=== PATIENT | female | born 1960 ===

== ENCOUNTER 2025-01-19 10:16 | Outpatient (AMB) | payer OTHER, SELFPAY ==
--- OUTSIDE RECORDS SUMMARY | 2025-01-19 11:15 | XMS_ITS | Clinical Summary ---
Author Organization [facility] [address] [facility] Building Address [address] [facility] [place] [address] Phone Care Team Providers Care Sales Center Associate Name Role Phone Sudarshan Nichols MD Primary Care Provider [phone] [phone] Allergies Active Allergy Reactions Criticality Noted Date Comments Other 01/05/2023 Seasonal Medications albuterol HFA (PROAIR HFA ; PROVENTIL HFA ; VENTOLIN HFA) 90 mcg/actuation inhaler Inhale 2 Puffs into the lungs every 6 hours as needed for Cough or Wheezing. 01/28/20 24 Active estradioL (ESTRACE) 0.5 mg tablet Take 1 tablet (0.5 mg total) by mouth 1 (one) time each day. 01/14/20 24 Active fluticasone propionate (FLONASE) 50 mcg/actuation nasal spray 2 sprays in each nostril daily 04/03/20 17 Active multivitamin (MULTIPLE VITAMINS ORAL) Take 2 tablets by mouth daily. Gummies Active ibuprofen (ADVIL,MOTRIN) 600 mg tablet Take 1 tablet (600 mg total) by mouth 1 (one) time each day if needed for mild pain (left shoudlerpain). 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 There is no pain, numbness, or tingling associated with this. She is just noted that over the past year or so it has gotten bigger. On exam to me it feels like this is a pure bony protuberance and possibly related to just arthritis in the joint between the clavicle and sternum. I discussed this with her in detail as well as her x-rays. We also talked about if this increases in size further or is associated with any pain that we could look into this further with CT imaging but for now I think she can follow- up with me on an as-needed basis moving forward. All questions were answered. 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 Overview (04/04/2024): Echo 08/10; 06/14 Hypertension 08/12/2008 Sickle cell trait ([facility] V24) 08/12/2008 Asthma 02/06/2008 Osteoarthritis 10/10/2006 Overview (04/04/2024): IMO update Immunizations Name Administration Dates Next Due Pfizer SARS-CoV-2 COVID-19, mRNA, LNP-S, preservative free 06/14/2021,01/03/2021,12/13/2020 Td Tetanus diptheria (Tdvax) 7yo and older 02/14,02/08/2006 Tdap Tetanus diptheria acell ular pertussis (Boostrix; Adacel) 7yo and older 08/15/2012 Surgical History Surgery Date Site/Laterality Comments OTHER SURGICAL HISTORY 2004 PROCEDURE: HISTORICAL PELVISCOPY; COMMENT: RSO TUBAL LIGATION 1988 PROCEDURE: HISTORICAL TUBAL LIGATION OTHER SURGICAL HISTORY 12/23/2008 PROCEDURE: HISTORICAL TOTAL HYSTERECTOMY W/O BSO; COMMENT: LSO CHOLECYSTECTOMY 1986 PROCEDURE: [place] CHOLECYSTECTOMY COLONOSCOPY 02/14/10 PROCEDURE: HISTORICAL COLONOSCOPY; COMMENT: normal; repeat in ten years CATARACT EXTRACTION 03/19 Right PROCEDURE: HISTORICAL CATARACT REMOVAL; COMMENT: Samina Medical History Medical History Date Comments Sickle cell trait (CMS/HCC V24) 08/12/2008 DX:Sickle cell trait (HCC) 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 DX:Myxom atous mitral valve; COMMENT: Echo 08/10 Anemia, unspecified DX:Anemia, u nspecified Unspecified asthma(493.90) DX:Un specified asthma(493.90) Unspecified essential hypertension 08/12/2008 DX:Unspecified essential hypertension Venereal disease, unspecified DX :Venereal disease, unspecified Generalized osteoarthrosis, unspecified site DX:Generalized osteoarthrosi s, unspecified site HLD (hyperlipidemia) 07/01/2020 DX:HLD (hyp erlipidemia) Family History Medical History Relation Name Comments Lung cancer Father Other cancer Mother pancreas Other: Sickle cell trait Mother Diabetes Sister 1 Breast cancer Neg Hx Relation Name Status Comments Brother 1 Alive Brother 2 Alive Brother 3 Alive Daughter 1 Lynn Alive Daughter 2 Dedra Alive Father cancer Maternal Grandfather Maternal Grandmother Mother cancer Paternal Grandfather Paternal Grandmother Sister 1 Alive htn, borderline diabetes Sister 2 Alive Sister 3 Alive Sister 4 Alive Son Shawn Alive Social History Tobacco Use Types Packs/Day Years Used Date Smoking Tobacco: Former Cigarettes 0.1 20 0 06/04/1974 - 06/04/1994 Smokeless Tobacco: Never Tobacco Cessation:Counseling Given: Not Answered Alcohol Use Standard Drinks/Week Comments Yes 0 (1 standard drink = 0.6 oz pur e alcohol) Housing Instability Answer Date Recorde d Are you worried that in the next 2 months you may not have stable housing? No 04/04/2024 Food Access & Nutrition Answer Date Rec orded Do you have access to a vari ety of food including fruits and vegetables? Yes 04/04/2024 Access to Healthcare Answer Date Record ed Within the last 3 months, ho w many times did you visit the emergency department for your medical care? 0 04/04/2024 Health Literacy Answer Date Recorded How often do you need to hav e someone help you when you read instructions, pamphlets, or other written material from your doctor or pharmacy? Never 04/04/2024 Caregiver: How often do you need to have someone help you when you read instructions, pamphlets, or other written material from your doctor or pharmacy? Not on file 04/04/2024 Financial Risk Answer Date Recorded How hard is it for you to pa y for the very basics like food, housing, medical care, and air conditioning / heating? Not very hard 04/04/2024 Transportation Answer Date Recorded Has the lack of transportati on kept you from meetings, work, or from getting things needed for daily living? No Has the lack of transportati on kept you from medical appointments or from getting medications? No 04/04/2024 Social Isolation Answer Date Recorded How often do you feel lonely or isolated from th ose around you? Never 04/04/2024 Food Risk Answer Date Recorded Within the past 12 months we worried whether our food would run out before we got money to buy more. Never true 04/04/2024 Within the past 12 months th e food we bought just didn't last and we didn't have money to get more. Never true 04/04/2024 Dependent Care Answer Date Recorded Do you need help finding or paying for care for your loved ones. For example, child welfare social worker or elderly care for an older adult? No 04/04/2024 Education Answer Date Recorded Do you think completing more education or training, like finishing a GED, going to college, or learning a trade, would be helpful for you? No 04/04/2024 Employment and Income Answer Date Recor ded During the last four weeks, have you been actively looking for work? No 04/04/2024 Living Situation Answer Date Recorded What is your living situation? 1 06/04/2023 Comments No Sex and Gender Information Value Date Recorded Sex Assigned at Not on file Legal Sex Female 9:47 PM EST Gender Identity Not on file Sexual Orientation Not on file Obstetrics History Last Filed Vital Signs Vital Sign Reading Time Taken Comments Blood Pressure 142/82 05/09/2024 8:39 AM EST Pulse 64 05/09/2024 8:39 AM EST Temperature 36.4 C (97.5 F) 05/09/2024 8:39 AM EST Respiratory Rate 18 05/09/2024 8:39 AM EST Oxygen Saturation 100% 05/09/2024 8:39 AM EST Inhaled Oxygen Concentration - - Weight 78 kg (171 lb 14.4 oz) 05/09/2024 8:39 AM EST Height 165.1 cm (5' 5 ) 05/09/2024 8:39 AM EST Body Mass Index 28.61 05/09/2024 8:39 AM EST Plan of Treatment Upcoming Encounters Date Type Department Care Team (Late st Contact Info) Description 01/23/2025 8:00 AM EDT Office Visit Internal Medicine - [address] [phone] Harry Catherine NP [address] [place] [id number] 02/17/2025 9:20 AM EDT Appointment Radiology Department [address] [address] Health Maintenance Due Date Last Done Comments Pneumococcal Vaccine: 50+ Years (1 of 2 - PCV) 08/01/1978 Zoster Vaccines (1 of 2) 08/01/2009 RSV Immunization Adult Patients (1 - Risk 60-74 years 1-dose series) 2019 Osteoporosis Screening (Bone Density Screening) 05/13/2022 COVID-19 Vaccine ( season) 2024 06/14/2021, 01/03/2021, 12/13/2020 Depression Screening 06/04/2024 04/04/2024 Falls Risk Assessment 08/01/2024 Influenza Vaccine (#1) 2025 Hypertension/CHF/CAD Annual BMP Blood Test 02/14/2025 02/15/2024, 02/15/2024 Social Influencers of Health Screening 04/04/2025 04/04/2024 Breast Cancer Screening 08/15/2025 08/16/19 24, 08/16/2023, 08/10/2022, Additional history exists Cholesterol Screening (Lipid Panel) 02/14/2029 02/15/2024, 02/15/2024 Colorectal Cancer Screening: Colonoscopy 11/08/2030 11/08/2020 DTaP,Tdap,and Td Vaccines (4 - Td or Tdap) 02/14/2034 02/15/2024, 08/15/2012, 02/08/2006 Hepatitis C Screening Completed 05/16/2010 HIB Vaccines Aged Out No longer eligi ble based on patient's age to complete this topic HPV Vaccines Aged Out No longer eligi ble based on patient's age to complete this topic Hepatitis A Vaccines Aged Out No long er eligible based on patient's age to complete this topic Hepatitis B Vaccines Aged Out No long er eligible based on patient's age to complete this topic IPV Vaccines Aged Out No longer eligi ble based on patient's age to complete this topic MMR Vaccines Aged Out No longer eligi ble based on patient's age to complete this topic Meningococcal ACWY Vaccine Aged Out N o longer eligible based on patient's age to complete this topic Meningococcal B Vaccine Aged Out No l onger eligible based on patient's age to complete this topic RSV Immunization Patients Under 20 months Aged Out No longer eligible based on patient's age to complete this topic Varicella Vaccines Aged Out No longer eligible based on patient's age to complete this topic Procedures Procedure Name Priority Date/Time Associated Diagnosis Comments ANNUAL BMP BLOOD TEST Routine 02/15/2024 LIPID PANEL Routine 02/15/2024 SCREENING MAMMOGRAPHY BI 2-VIEW BREAST INC CAD Routine 08/16/2023 7:48 AM EDT Encounter for screening mammogram for malignant neoplasm of breast COLONOSCOPY Routine 11/08/2020 HEPATITIS C SCREENING Routine 05/16/2010 from Last 3 Months or Most Recently Relevant to Health Maintenance Results * Annual BMP Blood Test (02/15/2024) Annual BMP Blood Test Abstracted Historical Provider HEALTH MAINTENANCE Final Result * (ABNORMAL) Lipid panel (02/15/2024) LDL/HDL Ratio 3 0 - 4 Triglycerides 107 0 - 150 mg/dL Cholesterol 205(A) 0 - 200 mg/dL HDL 61 >=40 mg/dL LDL Cholesterol 123(A) 0 - 100 mg/dL Blood Venous blood specimen / Unknown Historical Provider LAB BLOOD ORDERABLES Vero l Result * SCREENING MAMMOGRAPHY BI 2-VIEW BREAST INC CAD (08/16/2023 7:48 AM EDT) Anatomical Region Laterality Modality Radiographic Adriana ging 08/10/2022 8:04 AM EST Narrative 08/16/2023 4:50 PM EDT This is a summary report. The complete report is available in the patient's medical record. If you cannot access the medical record, please contact the sending organization for a detailed fax or copy. BILATERAL 3D DIGITAL SCREENING MAMMOGRAM History: Routine screening. No current breast complaints. Comparison: Multiple priors dating back to 02/12/2019 Technique: Bilateral full-field digital 3D mammography was performed using standard CC and MLO projections CAD was used to evaluate this mammogram. Findings: Density: The breasts are heterogeneously dense which may obscure small masses-C RIGHT: No suspicious masses, groups of microcalcification or areas of architectural distortion identified. Stable typically benign parenchymal asymmetries LEFT: No suspicious masses, groups of microcalcifications or areas of architectural distortion identified. Stable typically benign parenchymal asymmetries IMPRESSION: : 1. No mammographic evidence of malignancy. BI-RADS Category 2 benign findings Recommendation: Routine annual screening mammography is recommended Procedure Note Vinay Husain MD - 01/21/2024 This is a summary report. The complete report is available in thepatient's medical record. If you cannot access the medical record, pleasecontact the sending organization for a detailed fax or copy. BILATERAL 3D DIGITAL SCREENING MAMMOGRAM History: Routine screening. No current breast complaints. Comparison: Multiple priors dating back to 02/12/2019 Technique: Bilateral full-field digital 3D mammography was performed usingstandard CC and MLO projections CAD was used to evaluate this mammogram. Findings: Density: The breasts are heterogeneously dense which may obscure smallmasses-C RIGHT: No suspicious masses, groups of microcalcification or areas ofarchitectural distortion identified. Stable typically benign parenchymalasymmetries LEFT: No suspicious masses, groups of microcalcifications or areas ofarchitectural distortion identified. Stable typically benign parenchymalasymmetries IMPRESSION: : 1. No mammographic evidence of malignancy. BI-RADS Category 2 benign findings Recommendation: Routine annual screening mammography is recommended Sascha Castillo CNM IMG XR PROCEDURES Final Resul t * Colonoscopy (11/08/2020) Pathologist [facility] Colonoscopy Normal, Abstracted Anatomical Region Laterality Modality Other Historical Provider HEALTH MAINTENANCE Final Result * Hepatitis C Screening (05/16/2010) Pathologist [facility] Hepatitis C Screening Abstracted Historical Provider HEALTH MAINTENANCE Final Result from Last 3 Months or Most Recently Relevant to Health Maintenance Insurance [facility] [address] [place] [id number] Care Teams Sales Center Associate Relationship Specialty Start Date End Date Sudarshan Nichols MD [address] [place] [address] [place] [phone] PCP - General Internal Medicine 06/06/17 02/12/25
== END 2025-01-19 10:20 | disposition home or self-care (01) ==
LOC: HO.HMGAL 10:16
PROVIDERS: PCP Internal Medicine; Visit Provider Registered Nurse Emergency
DX: J30.89 Other allergic rhinitis (principal)
CPT/HCPCS: 95117; 95165

== ENCOUNTER 2025-02-09 14:43 | Outpatient (AMB) | payer OTHER, SELFPAY ==
--- OUTSIDE RECORDS SUMMARY | 2025-02-09 17:03 | XMS_ITS | Clinical Summary ---
Author Organization [facility] [address] [facility] Building Address [address] [facility] [place] [address] Phone Care Team Providers Care Ornamental Ironworker Helper Name Role Phone Sudarshan Nichols MD Primary Care Provider [phone] Allergies Active Allergy Reactions Criticality Noted Date Comments Other 01/05/2023 Seasonal Medications fluticasone propionate (FLONASE) 50 mcg/actuation nasal spray 2 sprays in each nostril daily 04/03/20 17 Active multivitamin (MULTIPLE VITAMINS ORAL) Take 2 tablets by mouth daily. Gummies Active albuterol HFA (PROAIR HFA ; PROVENTIL HFA ; VENTOLIN HFA) 90 mcg/actuation inhalerIndicatio ns:Mild intermittent asthma, unspecified whether complicated Inhale 2 puffs by mouth every 6 (six) hours if needed for wheezing. 6.7 g 1 01/24/20 25 Active dilTIAZem XR (DILT-XR) 180 mg 24 hr capsuleIndicatio ns:Primary hypertension Take 1 capsule (180 mg total) by mouth 1 (one) time each day. 90 capsule 1 01/24/20 25 Active estradioL (ESTRACE) 0.5 mg tablet Take 1 tablet (0.5 mg total) by mouth 1 (one) time each day. 30 each 5 01/25/20 25 026 Active albuterol HFA (PROAIR HFA ; PROVENTIL HFA ; VENTOLIN HFA) 90 mcg/actuation inhaler Inhale 2 Puffs into the lungs every 6 hours as needed for Cough or Wheezing. 01/28/20 24 025 Discontinued(Re order) estradioL (ESTRACE) 0.5 mg tablet Take 1 tablet (0.5 mg total) by mouth 1 (one) time each day. 01/14/20 24 025 Discontinued(Re order) ibuprofen (ADVIL,MOTRIN) 600 mg tablet Take 1 tablet (600 mg total) by mouth 1 (one) time each day if needed for mild pain (left shoudlerpai n). 10 tablet 04/08/20 025 Discontinued(Pa carol Discharge) DILT-XR 180 mg 24 hr capsule TAKE 1 CAPSULE BY MOUTH DAILY 90 capsule 09/19/19 025 Discontinued DILT-XR 180 mg 24 hr capsule TAKE 1 CAPSULE BY MOUTH DAILY 30 capsule 01/16/20 025 Discontinued(Re order) Active Problems Problem Noted Date Diagnosed Date [...] 08/10; 06/14 Hypertension 08/12/2008 Sickle cell trait ([facility] V24) 08/12/2008 Asthma 02/06/2008 Osteoarthritis 10/10/2006 Overview (04/04/2024): IMO update Encounters Date Type Department Care Team Description 01/23/2025 8:00 AM EDT Office Visit [facility] [address] [facility] [address] Harry Catherine NP Mild intermittent asthma, unspecified whether complicated (Primary Dx); Primary hypertension; Hyperlipidemia, unspecified hyperlipidemia type; Myxomatous mitral valve from Last 3 Months Immunizations Name Administration Dates Next Due Pfizer [...] W/O BSO; COMMENT: LSO CHOLECYSTECTOMY 1986 PROCEDURE: [place] CHOLECYSTECTOMY COLONOSCOPY 02/14/10 PROCEDURE: HISTORICAL COLONOSCOPY; COMMENT: normal; repeat in ten years CATARACT EXTRACTION 03/19 Right PROCEDURE: HISTORICAL CATARACT REMOVAL; COMMENT: Samina Medical History Medical History Date Comments Sickle cell trait ([facility] V24) 08/12/2008 DX:Sickle cell trait (HCC) Myxomatous [...] care for your loved ones. For example, vocational childcare teacher or elderly care for an older adult? [...] Sign Reading Time Taken Comments Blood Pressure 138/76 01/23/2025 8:27 AM EDT Pulse 60 01/23/2025 8:10 AM EDT Temperature 36.4 C (97.5 F) 05/09/2024 8:39 AM EST Respiratory Rate 18 05/09/2024 8:39 AM EST Oxygen Saturation 100% 05/09/2024 8:39 AM EST Inhaled Oxygen Concentration - - Weight 79.7 kg (175 lb 11.2 oz) 01/23/2025 8:07 AM EDT Height 165.1 cm (5' 5 ) 01/23/2025 8:07 AM EDT Body Mass Index 29.24 01/23/2025 8:07 AM EDT Plan of Treatment Upcoming Encounters Date Type Department Care Team (Late st Contact Info) Description 02/17/2025 9:20 AM EDT Appointment Radiology Department [address] [place] [address] Health Maintenance Due Date Last Done Comments Pneumococcal Vaccine: 50+ Years (1 of 2 - PCV) 08/01/1978 Zoster Vaccines (1 of 2) 08/01/2009 RSV Immunization Adult Patients (1 - Risk 60-74 years 1-dose series) 2019 Osteoporosis Screening (Bone Density Screening) 05/13/2022 COVID-19 Vaccine (4 - season) 2025 06/14/2021, 01/03/2021, 12/13/2020 Influenza Vaccine (#1) 2025 Hypertension/CHF/CAD Annual BMP Blood Test 02/14/2025 02/15/2024, 02/15/2024 Social Influencers of Health Screening 04/04/2025 04/04/2024 Breast Cancer Screening 08/15/2025 08/16/19 24, 08/16/2023, 08/10/2022, Additional history exists Falls Risk Assessment 01/23/2026 01/23/2025 Cholesterol Screening (Lipid Panel) 02/14/2029 02/15/2024, 02/15/2024 Colorectal Cancer Screening: Colonoscopy 11/08/2030 11/08/2020 DTaP,Tdap,and Td Vaccines (4 - Td or Tdap) 02/14/2034 02/15/2024, 08/15/2012, 02/08/2006 Hepatitis C Screening Completed 05/16/2010 Depression Screening Completed 01/22/2025 HIB Vaccines Aged Out No longer eligi [...] Final Resul t * Colonoscopy (11/08/2020) Pathologist [facility] Colonoscopy Normal, Abstracted Anatomical Region Laterality Modality Other Historical Provider HEALTH MAINTENANCE Final Result * Hepatitis C Screening (05/16/2010) Pathologist [facility] Hepatitis C Screening Abstracted Historical Provider HEALTH MAINTENANCE Final Result from Last 3 Months or Most Recently Relevant to Health Maintenance Insurance [facility] [address] [place] [id number] Care Teams Ornamental Ironworker Helper Relationship Specialty Start Date End Date Sudarshan Nichols MD [address] [place] [address] [place] [id number] PCP - General Internal Medicine 06/06/17 02/12/25
== END 2025-02-09 15:06 | disposition home or self-care (01) ==
LOC: HO.HMGAL 14:43
PROVIDERS: PCP Internal Medicine; Visit Provider Registered Nurse Emergency
DX: J30.89 Other allergic rhinitis (principal)
CPT/HCPCS: 95117; 95165

== ENCOUNTER 2025-03-11 16:09 | Outpatient (AMB) | payer OTHER, SELFPAY | END 2025-03-11 16:10 | disposition home or self-care (01) | LOC: HO.HMGAL 16:09 | PROVIDERS: PCP Internal Medicine; Visit Provider Registered Nurse Emergency | DX: J30.89 Other allergic rhinitis (principal) | CPT/HCPCS: 95117; 95165 ==

== ENCOUNTER 2025-04-22 11:38 | Outpatient (AMB) | payer OTHER, SELFPAY | END 2025-04-22 11:39 | disposition home or self-care (01) | LOC: HO.HMGAL 11:38 | PROVIDERS: PCP Internal Medicine; Visit Provider Registered Nurse Emergency | DX: J30.89 Other allergic rhinitis (principal) | CPT/HCPCS: 95117; 95165 ==